=== PATIENT | male | born 1960 | race Caucasian/White ===

== ENCOUNTER 2023-05-30 10:26 | Observation (INO) ==
[~2023-05-30 10:26] MED LIST: Buffered Lidocaine 1% SYRIN 1 ml INTRADERM ONE; Lactated Ringers 1000 ml BAG 1,000 ML IV SCH
[2023-05-30] MEDS ORDERED: ceFAZolin 2 GM in NS PREMIX 2 GM/100 ML BAG IVPB ONE (10:52)
[2023-05-30 11:23] LABS: Rapid COVID-19 Molecular Undetected (Undetected)
[2023-05-30] MEDS ORDERED: Propofol 10 MG/ML 20 ML BTL ONE ×3 (11:33→16:14)
[2023-05-30] MEDS ORDERED: Lidocaine 2% PF 5 ML VIAL ONE (11:33)
[2023-05-30] MEDS ORDERED: Midazolam 2 mg/2 ml VIAL 1 mg/ml 2 ml VIAL (2 mg) ONE (11:34)
[2023-05-30] MEDS ORDERED: fentaNYL 100 mcg/2 ml 50 MCG/ML VIAL ONE (11:34)
[2023-05-30] MEDS ORDERED: Phenylephrine IV 10 MG/ML 1 ml VIAL ONE (11:40)
[2023-05-30] MEDS ORDERED: ROPIVACAINE 5 MG/ML 30 ML BTL (0.5%) ONE (12:46)
[2023-05-30] MEDS ORDERED: Naloxone 0.4 mg VIAL 0.4 mg/ml 1 ml VIAL IV PRN (14:16)
[2023-05-30] MEDS ORDERED: Ondansetron 4 mg VIAL 2 MG/ML 2 ml VIAL IV PRN ×2 (14:16→16:35)
[2023-05-30] MEDS ORDERED: Acetaminophen IV 1 GM/100ML 1,000 MG/100 ML BAG IV PRN (14:16)
[2023-05-30] MEDS ORDERED: fentaNYL 100 mcg/2 ml 50 MCG/ML VIAL IV PRN (14:16)
[2023-05-30] MEDS ORDERED: HYDROmorphone 1 MG/1 ML SYRINGE IV PRN (14:16)
[2023-05-30] MEDS ORDERED: Ondansetron 4 mg VIAL 2 MG/ML 2 ml VIAL ONE (15:18)
[2023-05-30] MEDS ORDERED: Dexamethasone IV 4 MG/ML VIAL 1 ml VIAL ONE (15:18)
[2023-05-30] MEDS ORDERED: Ondansetron ODT 4 mg TAB 4 MG TAB PO PRN (16:35)
[2023-05-30] MEDS ORDERED: Morphine 2 MG/ML SYRINGE IV PRN (16:35)
[2023-05-30] MEDS ORDERED: Lactulose 30 ml UDC PO PRN (16:35)
[2023-05-30] MEDS ORDERED: Magnesium Hydroxide LIQ 30 ML UDC PO PRN (16:35)
[2023-05-30] MEDS ORDERED: Lactated Ringers 1000 ml BAG 1,000 ML IV SCH (17:00)
[2023-05-30] MEDS ORDERED: fentaNYL PATCH 12 MCG/HR 1 PATCH TRANSDERM SCH (19:30)
[2023-05-30] MEDS: Magnesium Hydroxide LIQ 30 ML UDC PO SCH (20:51)
[2023-05-30] MEDS: fentaNYL Patch Check Q Shift NOTE FOLLOW UP SCH (20:57)
[2023-05-30] MEDS: ceFAZolin 1 GM ADVAN 1 GM in NS 0.9% 50 ML 50 ML IVPB SCH (21:31)
[2023-05-31] MEDS: ceFAZolin 1 GM ADVAN 1 GM in NS 0.9% 50 ML 50 ML IVPB SCH ×2 (05:37→12:49)
[2023-05-31 06:00] LABS: Hematocrit 31.7 % (38-53); Hemoglobin 11.5 g/dL (13.2-16.3); Mean Platelet Volume 6.8 fL (7.5-11.2); Platelet Count 252 10^3/uL (150-450)
[2023-05-31 06:17] LABS: Calcium 8.7 mg/dL (8.6-10.3); Creatinine, Serum 0.72 mg/dL (0.67-1.17); Potassium 3.1 mmol/L (3.5-5.0); eGFR CKD-EPI 102.7 (>60)
[2023-05-31] MEDS: fentaNYL Patch Check Q Shift NOTE FOLLOW UP SCH (07:13)
[2023-05-31] MEDS ORDERED: LISINOPRIL PO SCH (09:00)
[2023-05-31] MEDS ORDERED: [UNRECOGNIZED DRUG - OTHER] PO SCH (09:00)
[2023-05-31] MEDS ORDERED: HYDROCHLOROTHIAZIDE PO SCH (09:00)
[2023-05-31] MEDS ORDERED: Vitamin THERAPEUTIC TAB PO SCH (09:00)
[2023-05-31] MEDS: Magnesium Hydroxide LIQ 30 ML UDC PO SCH (10:28)
[2023-05-31] MEDS ORDERED: Polyethylene Glycol 3350 17 GM PACKET PO PRN (10:35)
[2023-05-31] MEDS ORDERED: KCL 20 MEQ/100 ML IVPREMIX 20 MEQ/100 ML BAG IV SCH (12:00)
[2023-05-31] MEDS ORDERED: Potassium Chlor 20 meq TAB.ER PO ONE (12:03)
[2023-05-31 14:31] VITALS: BP 103/64
== END 2023-05-31 14:50 | disposition home or self-care (01) ==
LOC: INTOOBSV 10:26 → AA 10:26 → SSU 16:35
PROVIDERS: ADMIT Orthopaedic Surgery Adult Reconstructive Orthopaedic Surgery; ATTEND Orthopaedic Surgery Adult Reconstructive Orthopaedic Surgery